=== PATIENT | female | born 1980 | race Hispanic/Latino ===

== ENCOUNTER 2023-12-11 20:37 | Emergency (ER) | payer SELFPAY ==
[2023-12-11] MEDS ORDERED: Ketorolac Tromethamine 30 MG (1 mL) VIAL ONE (21:57)
== END 2023-12-11 23:02 | disposition home or self-care (01) ==
LOC: CSHERS 20:37
DX: B34.9 Viral infection, unspecified (principal); E86.0 Dehydration
CPT/HCPCS: 96361; 96374; J1885

== ENCOUNTER 2024-05-06 12:39 | Emergency (ER) | payer SELFPAY ==
[2024-05-06] MEDS ORDERED: Ibuprofen 200 MG TAB ONE (13:22)
== END 2024-05-06 15:14 | disposition home or self-care (01) ==
LOC: CSHERS 12:39
DX: J06.9 Acute upper respiratory infection, unspecified (principal)
CPT/HCPCS: 71045; 93005; 93010

== ENCOUNTER 2025-04-26 16:51 | Emergency (ER) | payer OTHER, SELFPAY ==
[2025-04-26] MEDS ORDERED: Methocarbamol 500 MG TAB ONE ×2 (18:03→18:04)
== END 2025-04-26 18:42 | disposition home or self-care (01) ==
LOC: CSHERS 16:51
DX: S10.93XA Contusion of unspecified part of neck, initial encounter (principal); S00.93XA Contusion of unspecified part of head, initial encounter; V89.0XXA Person injured in unspecified motor-vehicle accident, nontraffic, initial encounter
CPT/HCPCS: 70450; 72125